=== PATIENT | male | born 1985 | race Hispanic/Latino ===

== ENCOUNTER 2018-08-15 01:36 | Emergency (ER) | payer OTHER ==
[2018-08-15 02:01] VITALS: BMI 24.3
[2018-08-15] MEDS ORDERED: Tmp-Smz 800 mg-160 mg DS Tab PO STA (02:17)
[2018-08-15 02:52] VITALS: BP 126/72; PULSE 88; RESP 17; TEMP 98.2; O2SAT 98
--- NOTE | 2018-08-15 06:14 | ED PDOC ---
Arrival/HPI - General Chief Complaint: Lower Extremity Problem/Injury Time Seen by Provider: 08/15/18 01:43 Historian: Patient - History of Present Illness Narrative History of Present Illness (Text): 08/15/18 02:17 33 year old male, with no significant past medical history, who presents to the emergency department complaining of redness and tenderness in circular area of left thigh. Patient states that this was the first time he injected himself with testosterone and notes he used a new needle out of the package. Patient reports he was not prescribed the medication. Patient denies any other complaints. Time/Duration: Prior to Arrival Symptom Onset: Sudden Symptom Course: Unchanged Activities at Onset: Other (injected himself with testestorone) Past Medical History - Provider Review Nursing Documentation Reviewed: Yes - Infectious Disease Hx of Infectious Diseases: None - Cardiac Hx Cardiac Disorders: No - Pulmonary Hx Respiratory Disorders: No - Neurological Hx Neurological Disorder: No - HEENT Hx HEENT Disorder: No - Renal Hx Renal Disorder: No - Endocrine/Metabolic Hx Endocrine Disorders: No - Hematological/Oncological Hx Blood Disorders: No - Integumentary Hx Dermatological Disorder: No - Musculoskeletal/Rheumatological Hx Musculoskeletal Disorders: No - Gastrointestinal Hx Gastrointestinal Disorders: No - Genitourinary/Gynecological Hx Genitourinary Disorders: No - Psychiatric Hx Psychophysiologic Disorder: No Hx Substance Use: No Family/Social History - Physician Review Nursing Documentation Reviewed: Yes Family/Social History: No Known Family HX Smoking Status: Never Smoked Hx Alcohol Use: No Hx Substance Use: No Allergies/Home Meds Allergies/Adverse Reactions: Allergies banana Allergy (Verified 08/15/18 02:07) ANAPHYLAXIS Review of Systems - Physician Review All systems were reviewed & negative as marked: Yes - Review of Systems Constitutional: Normal Skin: Other (patient notes redness and tenderness in circular area of left thigh). absent: Normal Physical Exam Vital Signs Reviewed: Yes Vital Signs Temp Pulse Resp BP Pulse Ox 08/15/18 02:51 98.2 F 88 17 126/72 98 08/15/18 02:01 98.1 F 83 18 124/83 97 Temperature: Afebrile Blood Pressure: Normal Pulse: Regular Respiratory Rate: Normal Appearance: Positive for: Well-Appearing, Non-Toxic Pain Distress: Mild Mental Status: Positive for: Alert and Oriented X 3 - Systems Exam Head: Present: Atraumatic, Normocephalic Pupils: Present: PERRL Extroacular Muscles: Present: EOMI Conjunctiva: Present: Normal Mouth: Present: Moist Mucous Membranes Neck: Present: Normal Range of Motion Respiratory/Chest: Present: Clear to Auscultation, Good Air Exchange. No: Respiratory Distress, Accessory Muscle Use Cardiovascular: Present: Regular Rate and Rhythm, Normal S1, S2. No: Murmurs Abdomen: No: Tenderness, Distention, Peritoneal Signs Back: Present: Normal Inspection Upper Extremity: Present: Normal Inspection. No: Cyanosis, Edema Lower Extremity: Present: Swelling (2cm diameter swelling to circular area of left thigh), Erythema (positive erythema to area). No: Normal Inspection Neurological: Present: GCS=15, CN II-XII Intact, Speech Normal Skin: Present: Warm (area warm to the touch. no fluctuance. ) Psychiatric: Present: Alert, Oriented x 3, Normal Insight, Normal Concentration Medical Decision Making ED Course and Treatment: 08/15/18 02:15 Impression: 33 year old male who presents to the emergency department for redness and tenderness in circular area of left thigh. Plan: -- Bactrim DS 1 tab PO -- Keflex 500mg PO -- Motrin Tab 600mg PO -- Reassess and disposition Progress Notes: - Medication Orders Current Medication Orders: Discontinued Medications Cephalexin Monohydrate (Keflex) 500 mg PO STAT STA; Protocol Stop: 08/15/18 02:18 Last Admin: 08/15/18 02:36 Dose: 500 mg Ibuprofen (Motrin Tab) 600 mg PO STAT STA Stop: 08/15/18 02:19 Last Admin: 08/15/18 02:35 Dose: 600 mg Trimethoprim/Sulfamethoxazole (Bactrim Ds Tab) 1 tab PO STAT STA; Protocol Stop: 08/15/18 02:18 Last Admin: 08/15/18 02:36 Dose: 1 tab - Scribe Statement The provider has reviewed the documentation as recorded by the Scribjadyn Gilmore All medical record entries made by the Scribe were at my direction and personally dictated by me. I have reviewed the chart and agree that the record accurately reflects my personal performance of the history, physical exam, medical decision making, and the department course for this patient. I have also personally directed, reviewed, and agree with the discharge instructions and disposition. Disposition/Present on Arrival - Present on Arrival Any Indicators Present on Arrival: No History of DVT/PE: No History of Uncontrolled Diabetes: No Urinary Catheter: No History of Decub. Ulcer: No History Surgical Site Infection Following: None - Disposition Have Diagnosis and Disposition been Completed?: Yes Diagnosis: Cellulitis Disposition: HOME/ ROUTINE Disposition Time: 02:15 Condition: GOOD Discharge Instructions (ExitCare): Cellulitis (ED) Additional Instructions: APRIL GARZA, thank you for letting us take care of you today. Your provider was Ismael Woodson DO and you were treated for swollen leg ( L ). The emergency medical care you received today was directed at your acute symptoms. If you were prescribed any medication, please fill it and take as directed. It may take several days for your symptoms to resolve. Return to the Emergency Department if your symptoms worsen, do not improve, or if you have any other problems. Please contact your doctor or call one of the physicians/clinics you have been referred to that are listed on the Patient Visit Information form that is included in your discharge packet. Bring any paperwork you were given at discharge with you along with any medications you are taking to your follow up visit. Our treatment cannot replace ongoing medical care by a primary care provider outside of the emergency department. Thank you for allowing the [facility] team to be part of your care today. Follow up with your doctor in 2-3 days for re-evaluation and further management. Return to the emergency room if the area becomes larger or you have any c oncerns. Prescriptions: Cephalexin [cephalexin] 500 mg PO QID #28 cap Ibuprofen [Motrin] 600 mg PO Q6 PRN #20 tab PRN Reason: Pain, Moderate (4-7) Sulfamethoxazole/Trimethoprim [Bactrim DS 800 mg-160 mg] 1 tab PO BID #14 tab Referrals: [facility] Magdalena Shepard, [Non-Staff] - Follow up with primary Forms: [employer] (Maltese)
== END 2018-08-15 02:52 | disposition home or self-care (01) ==
LOC: MERGE 01:36 → ED 01:36
DX: L03.116 Cellulitis of left lower limb (principal)